=== PATIENT | male | born 1955 | race Caucasian/White ===

== ENCOUNTER → 2022-02-26 08:51 | Outpatient (CLI) | payer OTHER, MEDICAID, SELFPAY ==
--- NOTE | 2022-02-26 08:55 | DI.NM.S_ITS ---
PROCEDURE: [place] BONE SCAN WHOLE BODY RADIOPHARMACEUTICAL: 21.8 mCi Tc-99m MDP IV. INDICATIONS: Malignant neoplasm of prostate TECHNIQUE: Delayed whole-body scintigrams were obtained approximately 3-4 hours after intravenous injection of radiotracer. Anterior and posterior views were acquired from vertex to feet. Additional left and right oblique views of the pelvic were obtained. COMPARISON: [facility], CT, CT CHEST ABD PEL W CON, 02/26/2022, 9:43. FINDINGS: Physiologic uptake is noted within the kidneys and bladder. There is increased uptake within the right humeral head. Uptake at the sternoclavicular joint is also present. Small foci is of uptake is identified within the cervical spine. Mild uptake is noted within the small bones of the feet. IMPRESSION: Overall nonspecific uptake within the spine and sterno mandibular joints. Appearance can be consistent with degenerative change. Focal area of increased uptake within the right humeral head not fully included within the field of view on CT exam of 02/26/2022. Recommend shoulder x-rays for further evaluation. Dictated by: Shanice Ornelas M.D. on 02/26/2022 at 16:53 Approved by: Shanice Ornelas M.D. on 02/26/2022 at 16:58
--- NOTE | 2022-02-26 08:56 | DI.CT.S_ITS ---
PROCEDURE: CT CHEST ABD PEL W CON INDICATIONS: Malignant neoplasm of prostate TECHNIQUE: After the administration of oral and intravenous contrast, axial sections acquired from the supraclavicular neck to the pubic symphysis. Coronal and sagittal reformats were performed. For radiation dose reduction, the following was used: automated exposure control, adjustment of mA and/or kV according to patient size. COMPARISON: [place], [place], [place] BONE SCAN WHOLE BODY, 02/26/2022, 11:31. FINDINGS: Image quality: Excellent Lungs and pleura: No consolidation or pleural effusion. Scattered scarring/atelectasis. No suspicious pulmonary nodules. Pulmonary micro nodule seen on maximum intensity projection images can be followed on subsequent imaging for, for example in the right image 128. Mediastinum, heart, and esophagus: No hiatal hernia. Normal heart size. No thoracic aortic aneurysm. No pathologic adenopathy. Chest wall and thyroid: No axillary adenopathy. Unremarkable thyroid. Solid organs: Liver is unremarkable. Gallbladder, biliary tree, pancreas, spleen, adrenals are unremarkable. No hydronephrosis. There is a 8 mm stone in the left interpolar region. Fat containing lesion in the left interpolar region measuring 9 mm could be an angiomyolipoma. Vessels and lymph nodes: No abdominal aortic aneurysm. The main portal vein is patent. No suspicious retroperitoneal adenopathy. The pelvic lymph nodes seen are not enlarged by size criteria. Bowel and peritoneum: No bowel obstruction or pathologic ascites. Body wall: Fat containing left inguinal hernia and umbilical hernia. Pelvis: Heterogeneous enhancement of the prostate, particularly of the right peripheral zone. Primary malignancy is not well assessed on CT. Unremarkable bladder. Bones: Bone scan findings are separately dictated. Minimal heterogeneity of the marrow, with suspected bone islands are present and a small sclerotic lesion right 4th rib without definite uptake on prior bone scan. IMPRESSION: No definite abdominal pelvic adenopathy by size criteria or distant metastases. No overtly suspicious osseous lesion. Bone scan findings are separately dictated. Primary prostate malignancy is not well assessed on CT. Other incidental findings above can be followed on subsequent imaging. Dictated by: Jesse Barrios M.D. on 02/27/2022 at 10:33 Approved by: Jesse Barrios M.D. on 02/27/2022 at 10:43
== END ==
PROVIDERS: PCP Nurse Practitioner; Referring Provider Urology; Visit Provider Urology
DX: C61 Malignant neoplasm of prostate (principal); K40.90 Unilateral inguinal hernia, without obstruction or gangrene, not specified as recurrent; K42.9 Umbilical hernia without obstruction or gangrene
CPT/HCPCS: 71260; 74177; 78306; A9503; Q9967